=== PATIENT | female | born 1960 | race Caucasian/White ===

== ENCOUNTER 2018-10-24 17:07 | Emergency (ER) | payer OTHER ==
[~2018-10-24] VITALS: Ht 160 cm; Wt 92.6 kg
[2018-10-24 17:12] VITALS: BP 114/63; Ht 160 cm; Wt 92.6 kg
== END 2018-10-24 17:46 | disposition home or self-care (01) ==
LOC: ED 17:07
DX: S90.812A Abrasion, left foot, initial encounter (principal); M06.9 Rheumatoid arthritis, unspecified; W18.09XA Striking against other object with subsequent fall, initial encounter; Y93.89 Activity, other specified; Y92.89 Other specified places as the place of occurrence of the external cause; Y99.8 Other external cause status
CPT/HCPCS: Q0092